=== PATIENT | female | born 1980 ===

== ENCOUNTER → 2018-08-23 | Outpatient (CLI) | payer MEDICARE ==
--- NOTE | 2018-08-23 16:53 | CT ---
PROCEDURE: CT Abdomen and Pelvis With Intravenous Contrast CLINICAL INDICATION: The patient is 38 years old and is Female; NAUSEA WITH VOMMITING UNSP TECHNIQUE: Axial computed tomography images of the abdomen and pelvis with intravenous contrast. Sagittal and coronal reformatted images were created and reviewed. This CT exam was performed using one or more of the following dose reduction techniques: automated exposure control, adjustment of the mA and/or kV according to patient size, and/or use of iterative reconstruction technique. COMPARISON: None. FINDINGS: LUNG BASES: Normal. No mass. No consolidation. ABDOMEN: LIVER: Normal. No mass. GALLBLADDER AND BILE DUCTS: Cholecystectomy. No ductal dilation. PANCREAS: Normal. No mass. No ductal dilation. SPLEEN: Normal. No splenomegaly. ADRENALS: Normal. No mass. KIDNEYS AND URETERS: Normal. No solid mass. No hydronephrosis. STOMACH AND BOWEL: Mild thickening of the rectosigmoid may be due to underdistention or due to mild nonspecific colitis. No other bowel inflammatory changes. Stomach and small bowel within normal limits. PELVIS: APPENDIX: The appendix is seen and is within normal limits BLADDER: Normal. No mass. REPRODUCTIVE: Unremarkable as visualized. ABDOMEN and PELVIS: INTRAPERITONEAL SPACE: Normal. No free air. No significant fluid collection. BONES/JOINTS: No acute fracture. No dislocation. SOFT TISSUES: Normal. VASCULATURE: Normal. No abdominal aortic aneurysm. LYMPH NODES: Normal. No enlarged lymph nodes. IMPRESSION: Mild thickening of the rectosigmoid may be due to underdistention or due to mild nonspecific colitis. No other bowel inflammatory changes. Electronically signed by: Maury Rodriguez MD 08/23/2018 4:52 PM [employer]
== END ==
LOC: CT 15:45
PROVIDERS: ATTEND Family Medicine
DX: R10.9 Unspecified abdominal pain (principal); R11.2 Nausea with vomiting, unspecified